=== PATIENT | male | born 1995 | race Caucasian/White ===

== ENCOUNTER 2016-10-03 16:28 | Outpatient (CLI) | payer OTHER ==
--- NOTE | 2016-10-03 22:08 | MRI Report ---
MRI LUMBAR SPINE WITHOUT CONTRAST INDICATION: 20-year-old male with history of twisting injury 6 months ago. The patient complains of l ow back pain. Please assess. TECHNIQUE: 1. Sagittal STIR, T1 and T2. 2. Axial T1 and T2. COMPARISON: None. FINDINGS: There appear to be 5 [id number], lumbar-type vertebrae. There is a small rudimentary S1-S2 disk. Axial images demonstrate a mild dextroconvex scoliosis with apex in the lower lumbar spine. In the sa gittal plane, there is straightening of the lumbar alignment with minimal lordosis. In addition, ther e is minor stepwise retrolisthesis of L3 on L4, L4 on L5 and L5 on S1. Alignment is otherwise unremar kable. Degenerative changes are demonstrated in the disks at all levels from L3-L4 to L5-S1. There is mild t o moderate disk space narrowing at all 3 levels. The T11-T12 through L2-L3 disks appear well-hydrated . The marrow signal intensity is unremarkable. The conus has a normal appearance, terminating in an appropriate fashion at the L1-L2 disk level. The re is no abnormal thickening or lipomatous change of the filum. Axial images were obtained from L2-L3 to L5-S1. Review level by level reveals the following: L2-L3: No disk herniation. No spinal canal or foraminal stenosis. L3-L4: Minimal disk bulge with minimal mass effect on the ventral aspect of the thecal sac. No spinal stenosis or foraminal stenosis. L4-L5: Minimal disk bulge with minimal mass effect on the ventral aspect of the thecal sac. No spinal stenosis. Suspect early degenerative facet arthrosis. Minimal bony hypertrophy. Mild redundancy of l igamenta flava. Mild foraminal narrowing. L5-S1: Tiny posterior central extrusion with minor craniad migration in ventral epidural space along the dorsal margin of the lower L5 vertebral body. No mass effect on the thecal sac or S1 nerve roots. Degenerative facet arthrosis with mild bony hypertrophy. Minimal foraminal narrowing. IMPRESSION: 1. Degenerative disk and facet changes are demonstrated in the mid and lower lumbar spine as document ed in detail above. 2. No significant spinal canal or foraminal stenosis is demonstrated. No evidence of neural impingeme nt. 3. Assessment is limited, given absence of any sequences in the coronal plane. The L5 vertebra may be transitional and partially sacralized on the left. This is a potential cause for chronic low back pa in. Consider further assessment with lumbar spine radiographs. Referring Provider Line: [phone] SITE ID: [id number]
== END 2016-10-03 16:29 | disposition home or self-care (01) ==
LOC: DI 16:28
PROVIDERS: ATTEND Family Medicine
DX: M51.36 Other intervertebral disc degeneration, lumbar region (principal); M51.27 Other intervertebral disc displacement, lumbosacral region; M47.896 Other spondylosis, lumbar region; M47.897 Other spondylosis, lumbosacral region
CPT/HCPCS: 72148

== ENCOUNTER 2017-09-08 07:52 | Outpatient (CLI) | payer OTHER ==
--- NOTE | 2017-09-10 11:44 | CT Report ---
EXAM: BILATERAL CLAVICLE/STERNOCLAVICULAR JOINT CT WITHOUT CONTRAST EXAM DATE: 09/08/2017 08:06 AM. CLINICAL HISTORY: Left sternoclavicular joint sprain and pain for 3 months.. COMPARISON: Left clavicular radiography from 09/06/2017. TECHNIQUE: Thin-section axial images were acquired of the medial clavicles/sternoclavicular joints wi thout contrast. Post-processing: Coronal and sagittal reformats. Other: None. In accordance with CT protocol optimization, one or more of the following dose reduction techniques w ere utilized for this exam: automated exposure control, adjustment of mA and/or KV based on patient s ize, or use of iterative reconstructive technique. FINDINGS: Bones: No acute fracture or bone lesions. Ununited ossification center/apophysis at the medial end of the right clavicle. Partially united ossification center/apophysis at the medial end of the left cla vicle. Joints: There is slight asymmetric widening at the left sternoclavicular joint by approximately 3 mm in comparison to the right sternoclavicular joint. No joint subluxation. No joint effusion. Musculature: Normal. No fatty atrophy. Other: The visualized portions of the lungs are clear. IMPRESSION: 1. Slight asymmetric widening at the left sternoclavicular joint. 2. No acute fracture or bone lesions. [facility] Referring Provider Line: [phone] SITE ID: [id number]
== END 2017-09-08 07:53 | disposition home or self-care (01) ==
LOC: DI 07:52
PROVIDERS: ATTEND Orthopaedic Surgery
DX: S23.42 Sprain of sternum (principal)

== ENCOUNTER 2017-09-25 09:03 | Outpatient (CLI) | payer OTHER ==
--- NOTE | 2017-09-25 12:36 | MRI Report ---
EXAM: CT CHEST EXAM DATE: 09/25/2017 09:57 AM. CLINICAL HISTORY: Sprain of sternoclavicular (joint) (ligament), sub. COMPARISONS: None. TECHNIQUE: Routine helical CT imaging was performed through the chest. IV contrast: None. Reconstruct ions: Coronal and sagittal. In accordance with CT protocol optimization, one or more of the following dose reduction techniques w ere utilized for this exam: automated exposure control, adjustment of mA and/or KV based on patient s ize, or use of iterative reconstructive technique. FINDINGS: Focal area of concern at the left sternoclavicular joint is marked with an MRI marker. There is some chondromalacia on both sides of the inferior half of this joint with a small amount of marginal arthrosis. Trace joint effusion is also seen. No subjacent marrow edema. No masses, no signi ficant synovial thickening. No adenopathy. Contralateral right sternoclavicular joint appears normal. Visualized portion of the anterior mediastinum also appears normal. Other: None. IMPRESSION: 1. The focal area of concern corresponding to the left sternoclavicular joint shows some early change s of osteoarthritis and a small joint effusion. No worrisome bony erosive or destructive changes. No soft tissue mass. [facility] Referring Provider Line: [phone] SITE ID: [id number]
== END 2017-09-25 09:04 | disposition home or self-care (01) ==
LOC: DI 09:03
PROVIDERS: ATTEND Orthopaedic Surgery
DX: S23.420D Sprain of sternoclavicular (joint) (ligament), subsequent encounter (principal)
CPT/HCPCS: 71550

== ENCOUNTER 2019-01-02 10:13 | Outpatient (CLI) | payer OTHER | END 2019-01-02 10:14 | disposition home or self-care (01) | LOC: DI 10:13 | PROVIDERS: ATTEND Family Medicine | DX: I51.7 Cardiomegaly (principal) | CPT/HCPCS: 93306 ==